=== PATIENT | female | born 1980 | race African-American/Black ===

== ENCOUNTER 2020-06-19 07:53 | Outpatient (RCR) | payer OTHER, SELFPAY ==
[2020-06-19 08:15] VITALS: BP 145/73; PULSE 97; RESP 14; TEMP 37.4; O2SAT 100
[2020-06-19 09:41] VITALS: BMI 19.3
--- NOTE | 2020-06-19 09:48 | PC.NURSE ---
0810 Patient ambulatory with steady gait to the treatment room. Patient here for picc line placement and first dose of Vancomycin 750 mg IV. Patient A and O x 3.
== END 2020-09-17 23:59 | disposition home or self-care (01) ==
LOC: ANHVASCINF 07:53
PROVIDERS: Visit Provider Internal Medicine Infectious Disease
DX: M86.8X4 Other osteomyelitis, hand (principal)
CPT/HCPCS: 36569; 96365; C1751; J3370

== ENCOUNTER 2020-12-01 10:25 | Outpatient (CLI) | payer OTHER, SELFPAY ==
--- NOTE | ~2020-12-01 | XR_ITS ---
EXAMINATION: XR finger 4th RT min 2V DATE: 12/01/2020 10:47 INDICATION: Osteomyelitis of right hand fourth digit. TECHNIQUE: 4 views of right hand fourth digit were obtained. COMPARISON: None. FINDINGS: Bone alignment is normal. No fracture. Joint spaces are well maintained. IMPRESSION: 1. No evidence of osteomyelitis. Reviewed, dictated and finalized at location A.
== END 2020-12-01 10:26 | disposition home or self-care (01) ==
LOC: ANHIMG 10:33
PROVIDERS: Visit Provider Plastic Surgery
DX: M86.141 Other acute osteomyelitis, right hand (principal)
CPT/HCPCS: 73140

== ENCOUNTER → 2023-07-06 14:10 | Outpatient (CLI) | payer BC, SELFPAY ==
--- NOTE | ~2023-07-06 | MM_ITS ---
EXAMINATION: MM screening azucena BI w david HISTORY: Screening TECHNIQUE: Craniocaudal and mediolateral oblique 3-D tomosynthesis images were obtained and synthetic 2-D images were generated. CAD analysis was submitted and interpreted. COMPARISON: No prior mammogram is available for comparison at this institution. BREAST PARENCHYMAL COMPOSITION: Dense: The breasts are extremely dense, which lowers the sensitivity of mammography. FINDINGS: There is no evidence of suspicious mass, calcification, or architectural distortion to sugg est malignancy in either breast. There has been no suspicious interval change. IMPRESSION: 1. No mammographic evidence of malignancy. 2. Recommend routine screening mammography in one year. BI-RADS Category 1: Negative Reviewed, dictated and finalized at location A. [employer]
== END ==
PROVIDERS: PCP Nurse Practitioner; Visit Provider Nurse Practitioner
DX: Z12.31 Encounter for screening mammogram for malignant neoplasm of breast (principal)
CPT/HCPCS: 77063; 77067